=== PATIENT | female | born 1985 | race Caucasian/White ===

== ENCOUNTER 2023-09-10 18:19 | Outpatient (CLI) | payer MEDICAID, SELFPAY | END 2023-09-10 18:20 | disposition home or self-care (01) | PROVIDERS: Visit Provider Physician Assistant | DX: Z34.91 Encounter for supervision of normal pregnancy, unspecified, first trimester (principal); O02.1 Missed abortion; Z3A.01 Less than 8 weeks gestation of pregnancy | CPT/HCPCS: 76817; 86850; 86900; 86901 ==

== ENCOUNTER 2023-09-12 07:30 | Day surgery (SDC) | payer MEDICAID, SELFPAY ==
--- OUTSIDE RECORDS SUMMARY | 2023-09-12 07:33 | XMS_ITS | Referral Summary ---
Author Name Unknown Organization [facility] Address [address] [place] [address]. [place] [address] Care Team Providers Care Service Establishment Attendant Name Role Phone DennisDebbie suh Lupe Primary Care Provider [phone] Allergies Active Allergy Reactions Criticality Noted Date Comments Amoxicillin Rash Low 05/14/2021 Finished 3 days prior to onset of rash... Possibly allergic. Rash c/w drug rash. Medications Medication Sig Dispensed Refills Start Date End Date Status sertraline (ZOLOFT) 25 MG tablet Take 25 mg by mouth daily 0 08/30/2021 Active Active Problems Problem Noted Date Diagnosed Date Indication for care in labor or delivery 022 Abdominal pain 06/07/2011 Generalized anxiety disorder 06/07/2011 Overview: Diagnosis updated by automated process. Provider to review and confirm. Social History Tobacco Use Types Packs/Day Years Used Date Smoking Tobacco: Former Cigarettes 1 7 Smokeless Tobacco: Never Comments:almost a ppd Alcohol Use Standard Drinks/Week Comments Yes 0.8 (1 standard drink = 0.6 oz p ure alcohol) Kinder Depression Scale Answer Date Recorded Kinder Depression Score 6 09/29/2021 Last EPDS Self Harm Result Not on file 09/29 Adolescent Education Answer Date Record ed Getting School Help Needed Not on file 05/19 Sex and Gender Information Value Date Recorded Sex Assigned at Not on file Gender Identity Not on file Sexual Orientation Not on file Last Filed Vital Signs Vital Sign Reading Time Taken Comments Blood Pressure 127/74 09/29/2021 9:13 AM INVENTORY ASSISTANT Pulse 72 09/29/2021 9:13 AM INVENTORY ASSISTANT Temperature 36.8 ??C (98.3 ??F) 09/29/2021 9:13 AM CS T Respiratory Rate 14 09/29/2021 9:13 AM INVENTORY ASSISTANT Oxygen Saturation 100% 09/27/2021 10:00 AM INVENTORY ASSISTANT Inhaled Oxygen Concentration - - Weight 81.6 kg (180 lb) 05/14/2021 3:55 PM CDT Height 173.7 cm (5' 8.4) 10/01/2011 6:14 AM INVENTORY ASSISTANT Body Mass Index 27.05 10/01/2011 6:14 AM INVENTORY ASSISTANT Plan of Treatment Not on file Advance Directives For more information, please contact: [phone] Documents on File Type Date Recorded Patient Test Department Helper Expl anation Advance Directives and Living Will 10/06/2021 Health Care Directiv e 09/16/2021 Latest Code Status on File Code Status Date Activated Date Inactivated Comments Full Code 09/26/2021 5:45 PM 09/29/2021 4:27 PM All bas ic and advanced life-sustaining interventions are performed as appropriate Question Answer Comments Code status determined by: Discussion with patient/ legal decision maker Code Status History Code Status Date Activated Date Inactivated Comments Full Code 10/02/2011 9:01 AM 09/26/2021 10:43 AM Full Code 06/10/2011 3:44 PM 10/02/2011 9:01 AM Full Code 06/07/2011 11:56 AM 06/10/2011 3:44 PM Healthcare Agents on File Name Relationship Healthcare Agent [facility] Communication Corbin Beatty Significant other Health Care Agent Amy Low Mother First Alternate Health Care Agent Care Teams Service Establishment Attendant Relationship Specialty Start Date End Date Debbie March [address] [facility] [address] PCP - General Family Medicine 09/01/21
--- OUTSIDE RECORDS SUMMARY | 2023-09-12 07:33 | XMS_ITS | Clinical Summary ---
Author Name Unknown Organization [facility] Address [address] [place] [address]. [place] [address] Care Team Providers Care Anthropometrist Name Role Phone DennisDebbie suh Lupe Primary Care Provider Allergies Active Allergy Reactions Criticality Noted Date [...] drink = 0.6 oz p ure alcohol) [place] Depression Scale Answer Date Recorded [place] Depression Score 6 09/29/2021 Last EPDS Self [...] Comments Blood Pressure 127/74 09/29/2021 9:13 AM WOODWORKING MACHINE OFFBEARER Pulse 72 09/29/2021 9:13 AM WOODWORKING MACHINE OFFBEARER Temperature 36.8 ??C (98.3 ??F) 09/29/2021 9:13 AM CS T Respiratory Rate 14 09/29/2021 9:13 AM WOODWORKING MACHINE OFFBEARER Oxygen Saturation 100% 09/27/2021 10:00 AM WOODWORKING MACHINE OFFBEARER Inhaled Oxygen Concentration - - Weight 81.6 kg (180 lb) 05/14/2021 3:55 PM CDT Height 173.7 cm (5' 8.4) 10/01/2011 6:14 AM WOODWORKING MACHINE OFFBEARER Body Mass Index 27.05 10/01/2011 6:14 AM WOODWORKING MACHINE OFFBEARER Plan of Treatment Health Maintenance Due Date Last Done Comments ANNUAL REVIEW OF HM ORDERS 1984 HEPATITIS B IMMUNIZATION (1 of 3 - 3-dose series) 1984 HEPATITIS C SCREENING 2002 PAP 2005 DTAP/TDAP/TD IMMUNIZATION (7 - Td or Tdap) 06/06/2019 06/06/2009, 03/20/1990, 04/11/1988, Additional history exists YEARLY PREVENTIVE VISIT 02/12/2020 02/12/20 19, 01/01/2017, 03/06/2011, Additional history exists COVID-19 Vaccine ( season) 2023 08/01/2021, 01/27/2021, 12/27/2020 INFLUENZA VACCINE (#1) 2023 9, 07/21/2017, 07/13/2016, Additional history exists PHQ-2 (once per calendar year) 2023 ADVANCE CARE PLANNING 10/06/2026 10/06/2021 HPV IMMUNIZATION Completed 06/04/2012, 07/2011, 05/31/2010 HIV SCREENING Completed 03/27/2021 IPV IMMUNIZATION Aged Out No longer e ligible based on patient's age to complete this topic MENINGITIS IMMUNIZATION Aged Out No l onger eligible based on patient's age to complete this topic Pneumococcal Vaccine: Pediatrics (0 to 5 Years) and At-Risk Patients (6 to 64 Years) Aged Out No longer eligible based on patient's age to complete this topic RSV MONOCLONAL ANTIBODY Aged Out No l onger eligible based on patient's age to complete this topic Advance Directives For more information, please contact: [phone] Documents on File Type Date Recorded Patient Breakfast Attendant Expl anation Advance Directives and Living Will [...] Agents on File Name Relationship Healthcare Agent [facility] p Communication Corbin Beatty Significant other Health Care Agent Amy Low Mother First Alternate Health Care Agent Care Teams Anthropometrist Relationship Specialty Start Date End Date Debbie March [address] [place] [address] PCP - General Family Medicine 09/01/21
--- OUTSIDE RECORDS SUMMARY | 2023-09-12 07:34 | XMS_ITS | Encounter Summary ---
Author Name Unknown Organization [facility] Address [address], [place] [address] Care Team Providers Care Youth Career Specialist Name Role Phone Debbie March DO Primary Care Provider [phone] Reason for Visit * Reason Comments Medication Questions Alternate to Hernesto diego Encounter Details Date Type Department Care Team Description 09/09/2023 2:35 PM THERAPEUTIC RECREATION LEADER E-Visit Mara [address] [address] Debbie March DO [address] [place] [id number] Chief Comp: Medication Questions Social History Tobacco Use Types Packs/Day Years Used Date Smoking Tobacco: Former Cigarettes 0.8 8 0 08/26/2000 - 08/09/2008 Smokeless Tobacco: Never Alcohol Use Standard Drinks/Week Comments Yes 1.7 (1 standard drink = 0.6 oz p ure alcohol) 2 times a week PHQ-2 Answer Date Recorded PHQ-2 Score 0 01/09/2022 Depression Answer Date Recor ded Last EPDS Total Score 5 04/11/2022 Last EPDS Self Harm Result 1-->hardly ever 04/11 Comments Yes Sex and Gender Information Value Date Recorded Sex Assigned at Not on file Gender Identity Not on file Sexual Orientation Not on file documented as of this encounter Nursing Notes * Mara Robison RN - 09/10/2023 1:10 PM CST Clinician: Review and advise Patient/life care planner request: New Order: Medication Specific Request: See [employer] message for medication recommendation. Last visit 10/2022. APEUTIC RECREATION LEADER documented in this encounter Plan of Treatment Not on file documented as of this encounter Visit Diagnoses Not on filedocumented in this encounter Care Teams Youth Career Specialist Relationship Specialty Start Date End Date Debbie March DO [address] [place] [address] PCP - General 04/26/16 documented as of this encounter
--- OUTSIDE RECORDS SUMMARY | 2023-09-12 07:34 | XMS_ITS | Encounter Summary ---
Author Name Unknown Organization [facility] Address [address] [address] Care Team Providers Care Binding Cutter Name Role Phone Debbie March DO Primary Care Provider [phone] Reason for Visit * Reason Comments STREP, THROAT Encounter Details Date Type Department Care Team Description 09/18/2022 Telephone [facility] [address] [place] [address] Debbie March DO [address] [facility] [place] [address] STREP, THROAT Social History Tobacco Use Types Packs/Day Years [...] as of this encounter Nursing Notes * Krystal Rodriguez RN - 09/18/2022 6:47 PM CST Subjective: Molly Low is a 37 y.o., female positive for strep, per PCR test. Objective: Was this positive strep test obtained when patient was assessed via a clinician office visit, clinician e-visit, clinician phone visit or clinician video visit? No. Patient did not have a clinician assessment via a clinician office visit, e- visit, phone visit, or video visit prior to strep test being obtained and further manager cardiac of serious or complicating symptoms and history is needed. Patient has the following serious or complicating symptoms or history: None. Patient has NO serious or complicating symptoms or history. RN to continue with standing order. Weight: 160 lbs Current Prescriptions Current Outpatient Medications Medication Sig Dispense Refill [id number] MG CAPS TAKE 1 TAB BY MOUTH EVERY 6 HOURS NEEDED FOR HEADACHE sertraline (ZOLOFT) 25 MG tablet Take 25 mg by mouth. No current facility-administered medications for this visit. Allergies as of 09/18/2022 - Reviewed 01/09/2022 Allergen Reaction Noted Amoxicillin Rash 05/14/2021 Patient Active Problem List Diagnosis Papanicolaou smear of cervix with atypical squamous cells of undetermined significance (ASC-US) FHx: migraine headaches Anxiety (HRC) Headache, migraine Plan: Patient notified of results. Advised to notify clinic if no improvement after 48 hours. Advised is contagious until first 24 hours of antibiotics completed. Patient is 2 years and older - Antibiotic prescribed per standing orders, instructed to finish entire course. Problem list reviewed as related to this call. MACEUTICAL SALES REPRESENTATIVE * Venessa Heath RN - 09/18/2022 6:24 PM CST Results for orders placed or performed in visit on 09/18/22 Strep Test by PCR Result Value Ref Range Group A Strep Detected (A) Not Detected MACEUTICAL SALES REPRESENTATIVE documented in this encounter Plan of Treatment Not on file documented as of this encounter Visit Diagnoses Diagnosis Streptococcal pharyngitis- Primary Streptococcal sore throat documented in this encounter Additional Health Concerns Infection Onset Date Last Indicated Resolved Time R/O COVID19 09/18/2022 09/18/2022 09/19/2022 3:36 AM PHARMACEUTICAL SALES REPRESENTATIVE documented as of this encounter Care Teams Binding Cutter Relationship Specialty Start Date End Date Debbie March DO [address] [place] [address] PCP - General 04/26/16 documented as of this encounter
--- OUTSIDE RECORDS SUMMARY | 2023-09-12 07:34 | XMS_ITS | Encounter Summary ---
Author Name Unknown Organization [facility] Address [address], [place] [address] Care Team Providers Care Mental Measurements Teacher Name Role Phone Debbie March DO Primary Care Provider [phone] Reason for Visit * Reason Comments MEDICATION CHECK Encounter Details Date Type Department Care Team Description 10/23/[address] [address] [place] [address] [place] [id number] MEDICATION CHECK Social History Tobacco Use Types Packs/Day Years [...] as of this encounter Nursing Notes * Ivy Bailey RN - 10/23/2022 2:10 PM CST Patient calling, would like to increase her dose of sertraline, had stopped it for awhile. No thoughts of self harm. Patient will submit an Evisit. KILN TENDER * Briana Hall - 10/23/2022 1:42 PM CST Symptoms Describe your symptoms (if pain, include location): Pt would like to increase dosage on medication Sertraline. Currently 25mgs. Pt would like come in and be seen for medication review, APWI as soon as possible. When did they start? On going Additional comments (related to the above concern): APWI as soon as possible, medication review. If a prescription is needed, patient would like it filled at the pharmacy listed in Medication Management. Is it okay to leave a detailed message on your voicemail? Yes KILN TENDER documented in this encounter Plan of Treatment Not on file documented as of this encounter Visit Diagnoses Not on filedocumented in this encounter Care Teams Mental Measurements Teacher Relationship Specialty Start Date End Date Debbie March DO [address] [facility] [place] [address] PCP - General 04/26/16 documented as of this encounter
--- OUTSIDE RECORDS SUMMARY | 2023-09-12 07:34 | XMS_ITS | Encounter Summary ---
Author Name Unknown Organization [facility] Address [facility] [place] [address] Care Team Providers Care Rotary Operator Name Role Phone Fady Harmon MD Unavailable [phone] Debbie March Primary Care Provider [phone] Encounter Details Date Type Department Care Team (Late st Contact Info) Description 09/25/2021 Orders Only [facility] Services - Surgical Specialties Service Line [facility] [place] [address] Sandra Nance MD [address] [id number] Indication for care in labor or delivery (Primary Dx) Social History Tobacco Use Types Packs/Day Years Used Date Smoking Tobacco: Former Cigarettes 1 7 Comments:almost a ppd Alcohol Use Standard Drinks/Week Comments Yes 0.8 (1 standard drink = 0.6 oz p ure alcohol) [place] Depression Scale Answer Date Recorded [place] Depression Score 6 09/29/2021 Last EPDS Self Harm Result Not on file 09/29 Comments Yes Sex and Gender Information Value Date Recorded Sex Assigned at Not on file Gender Identity Not on file Sexual Orientation Not on file documented as of this encounter Plan of Treatment Not on file documented as of this encounter Visit Diagnoses Diagnosis Indication for care in labor or delivery- Primary Unspecified indication for care or intervention related to labor and delivery, unspecified as to episode of care documented in this encounter Care Teams Rotary Operator Relationship Specialty Start Date End Date Debbie March [address] [place] [address] PCP - General Family Medicine 09/01/21 Fady Harmon MD [address] [address] Assigned OBGYN Provider 07/16/21 documented as of this encounter
--- OUTSIDE RECORDS SUMMARY | 2023-09-12 07:34 | XMS_ITS | Encounter Summary ---
Author Name Unknown Organization [facility] Address [address], [place] [address] Care Team Providers Care Nursing Unit Coordinator Name Role Phone Debbie March DO Primary Care Provider [phone] Reason for Visit * Reason Comments Labs Needed Encounter Details Date Type Department Care Team Description 09/18/2022 Nurse Triage [address] [address] Debbie March DO [address] [place] [address] Labs Needed Social History Tobacco Use Types Packs/Day Years [...] Nursing Notes * Ivy Bailey RN - 09/18/2022 2:21 PM CST Patient calling, had onset of sore throat on 09/14-, no fever, is able to swallow, no white patches in throat. Glands do feel tender to touch. Leaving for vacation on 09/21/22. Advised covid testing with strep testing prior to travel. Problem list reviewed as related to this call. Future Appointments Date Time Provider Department Center 09/18/2022 5:00 PM LAB, [facility] Reason for Disposition Sore throat is main symptom and persists > 48 hours Protocols used: Sore [id number] EXAMINER * Debbie March DO - 09/18/2022 2:02 PM CST Will route to Triage to evaluate and determine if treatment possible with smart set/more info. Would not just order lab. If pt does not fall into the ordering/treating criteria would recommend a visit-- virtual, evisit or in person. Please advise. Thank you. Debbie March DO EXAMINER * Deepa Vázquez - 09/18/2022 9:38 AM CST Orders - Lab What order is being requested? Strep test Why is this order being requested? Pt has a sore throat When were you seen last for this concern? By whom? N/A Additional comments (related to the above concern): Is it okay to leave a detailed message on your voicemail? Yes Is there anything else I can help you with today? EXAMINER documented in this encounter Plan of Treatment Not on file documented as of this encounter Visit Diagnoses Not on filedocumented in this encounter Care Teams Nursing Unit Coordinator Relationship Specialty Start Date End Date Debbie March DO [address], [place] [address] PCP - General 04/26/16 documented as of this encounter
--- OUTSIDE RECORDS SUMMARY | 2023-09-12 07:34 | XMS_ITS | Clinical Summary ---
Author Name Unknown Organization [facility]ly [facility] Address [address], [place] [address] Care Team Providers Care Associate Professor Of Library Science Name Role Phone Dennisvikash Debbie L DO Primary Care Provider +1- [phone] Source Comments You are receiving this document as you are listed as the primary care provider,follow-up provider, or the patient has been referred to you for consultation.This is in compliance with the Medicare and[facility] Cent[facility]aid EHR Incentive Program,which states Providers who transition their patient to another setting of careor provider of care or refers their patient to another provider of care shouldprovide summary care record for each transition of care or referral. [place] Allergies Active Allergy Reactions Criticality Noted Date Comments Amoxicillin Rash Low 05/14/2021 Finished 3 days prior to onset of rash... Possibly allergic. Rash c/w drug rash. Sumatriptan Other, see comments 11/14/2022 Feels groggy, cannot function Medications Medication Sig Dispensed Refills Start Date End Date Status Ojwucvvhjq-BOFE-Otxma ine 50-300-40 MG CAPS TAKE 1 TAB BY MOUTH EVERY 6 HOURS NEEDED FOR HEADACHE 0 04/24/2021 Active rizatriptan (MAXALT-HAND BOOKED FOLDER AND STITCHER) 10 MG disintegrating tablet Take by mouth. 0 08/29/2022 Active sertraline (ZOLOFT) 100 MG tablet Take 1 Tablet (100 mg) by mouth daily. 90 Tablet 3 11/14/2022 11/14/2023 Active LORazepam (ATIVAN) 0.5 MG tabletIndications:Anx iety (HRC) Take 1 Tablet (0.5 mg) by mouth every 8 hours as needed. for anxiety 30 Tablet 0 06/16/2023 Active Active Problems Problem Noted Date Diagnosed Date Headache, migraine 04/13/2012 Anxiety 06/27/2011 FHx: migraine headaches 03/06/2011 Overview: No aura symptoms. Papanicolaou smear of cervix with atypical squamous cells of undetermined significance (ASC-US) 03/06/2010 Overview: 2008 - HPV high risk neg ; ASCUS on Pap smear Comments Yes Resolved Problems Problem Noted Date Diagnosed Date Resolved Date Panic attacks 04/20/2020 01/09/2022 Carpal tunnel syndrome 05/31/200903/06 Overview: : Given wrist splints - advised Vit B6 50mg/d Supervision of normal first 11/09/2008 03/06/2010 Overview: Primp US at 11 weeks EDC 10 16/05 /Del [facility]WH/ CNM. 1-abnormal pap ASCUS HPv high risk Neg. 2- smoker Quite. 3- HX of Migrain SIMMONS. 4- HX of depression no med used. 5- family hx of Hypertension. AP: Declined flu shot 05/04 IP: Plans epidural for pain relief; plans nursing; HP for pediatrics; having a girl; GBS neg PP: Candidate for Tdap Hyperhidrosis 10/29/2006 04/20/2020 Personal history of tobacco use, presenting hazards to health 03/19/2006 11/10/2008 General counseling for presc ription of oral contraceptives 03/19/2006 11/09/2008 Overview: On Sheeba Encounters Date Type Department Care Team Description 09/09/2023 2:35 PM LEVEL VIAL SEALER E-Visit [facility] [address] [address] Debbie March DO Chief Comp: Medication Questions 06/26/2023 4:50 PM CDT Lab Visit [facility] [address] [place] [address] Encounter for screening for other viral diseases (Primary Dx) 06/15[facility] [address] [place] [address] Debbie March DO Refill (LORazepam (ATIVAN) 0.5 MG tablet [Pharmacy Med Name: LORazepam Oral Tablet 0.5 MG]) from Last 3 Months Immunizations Name Administration Dates Next Due 4vHPV (Gardasil) 06/04/2012, 1,03/06/2011,05/31,05/31/2010 06/06/2011 DTP 03/20/1990, 8,01/19/1986,05/19,1984 DTaP 03/20/1990, 8,01/19/1986,05/19,1984 Flu Vac (3+ yrs) 05/31/2010,06/06/2009 Flu Vac Preserv Free (3+yrs) 06/04/2012,05/31/20 10,06/06/2009 H1n1 Miv Novartis 4+ Yr (Injected) 08/04/2009 H1n1 Miv Sanofi 3+ Yr (Injected) 08/04/2009 HepB Ped/Adol (0-18 yrs) 12/24/1996,08/1996,07/30/1996,07/30,06/25/1996,06/25/1996 Influenza IIV4 (Quadrivalent ) 0.5mL (94627) 04/29/2019,07/13/2016,06/04/2015 Influenza, Unspecified Formulation 07/21/2017 MMR 03/20/1990, 0,01/19/1986,01/19 Moderna Monovalent 12+ 08/01/2021,01/27/2021,11/2020 OPV, Trivalent (Orimune or tOPV) 990,03/20/1990,04/11/1988,04/11,05/19/1985,05/19/1985,1984 ,1984 TDAP (ADACEL) 06/06/2009 Td 04/12/1999,04/12/1999 Tdap 06/06/2009 Family History Medical History Relation Name Comments Hypertension Father Thyroid Disorder Mother Diabetes Maternal Grandmother High Cholesterol Maternal Grandmother Thyroid Disorder Maternal Grandmother Cancer, Other Paternal Grandfather lung Cancer Paternal Grandmother lung Cancer, Other Paternal Grandmother lung Cataract Negative Family History Glaucoma Negative Family History Macular Degeneration Negative Family History Retinal Detachment Negative Family History Stroke Negative Family History Relation Name Status Comments Father Alive Mother Alive Maternal Grandfather Alive Maternal Grandmother Alive Paternal Grandfather Paternal Grandmother Sister 1 Alive Sister 2 Alive Social History Tobacco Use Types Packs/Day Years [...] Sign Reading Time Taken Comments Blood Pressure 132/73 07/15/2019 9:56 AM LEVEL VIAL SEALER Pulse 82 07/15/2019 9:56 AM LEVEL VIAL SEALER Temperature 37.2 ??C (99 ??F) 10/22/2017 1:56 PM LEVEL VIAL SEALER Respiratory Rate 16 05/31/2010 3:09 PM CDT Oxygen Saturation - - Inhaled Oxygen Concentration - - Weight 72.6 kg (160 lb) 01/09/2022 5:02 PM CDT p t reported Height 170.2 cm (5' 7) 01/09/2022 5:02 PM CDT p t reported Body Mass Index 25.06 01/09/2022 5:02 PM CDT Plan of Treatment Health Maintenance Due Date Last Done Comments Hep C Screening (Preventive Services) 1984 DTaP/Tdap/Td (8 - Tdap) 06/06/2019 06/06/20 09, 06/06/2009, 06/06/2009 (Completed), Additional history exists COVID-19 Vaccine ( season) 2023 08/01/2021, 01/27/2021, 12/27/2020 Influenza (#1) 2023 04/29/2019, 06/27, 07/13/2016, Additional history exists Adult Preventive Visit 01/10/2024 , 02/11/2019, 01/01/2017, Additional history exists Cervical Cancer Screening 11/13/20272022, 02/11/2019, 01/31/2015, Additional history exists Zoster/Shingles (1 of 2) 2034 IPV (Polio) Completed 03/20/1990, 02/24, 04/11/1988, Additional history exists HepB Completed 12/24/1996, 08/1996, 07/30/1996, Additional history exists HIV Screening (Preventive Services) Completed 11/03/2008, 03/19/2006 HPV Vaccine Completed 06/04/2012, 02/23, 03/06/2011, Additional history exists HepA Aged Out No longer eligi ble based on patient's age to complete this topic Hib Aged Out No longer eligi ble based on patient's age to complete this topic MCV4 Aged Out No longer eligi ble based on patient's age to complete this topic Pneumococcal Aged Out No longer eligi ble based on patient's age to complete this topic Procedures Procedure Name Priority Date/Time Associated Diagnosis Comments 2019 NOVEL CORONAVIRUS Routine 06/26/2023 4:51 PM CDT Encounter for screening for other viral diseases STREP GROUP A, MOLECULAR DETECTION Waiting 06/26/2023 4:51 PM CDT Encounter for screening for other viral diseases from Last 3 Months Results * Strep Test by PCR (06/26/2023 4:51 PM CDT) Group A Strep Not Detected Not Detected 023 5:35 PM CDT [facility] Comment:Methodology: Qualita tive real-time PCR assay Swab (Source Required) THROAT SWAB / Unknown Non-blood Collection / Unknown 06/26/2023 4:51 PM CDT 06/26/2023 4:51 PM CDT Debbie March DO LAB_1 Performing Organization Address City/[facility]/ZIP Co de Phone Number [facility] [address] [facility] [place] [address] [phone] * Asymptomatic - 2019 Novel Coronavirus (COVID-19) (06/26/2023 4:51 PM CDT) COVID-19 Interpretation Not Detected Not Detected 06/27/2023 3:05 AM CDT [facility] Source Nares, left and right 06/27/2023 3:05 AM CDT [facility] Swab (Source Required) Non-blood Collection / Unknown 06/26/2023 4:51 PM CDT 06/26/2023 4:51 PM CDT Narrative [facility] - 06/27/2023 3:05 AM CDT Test performed by Demand Planning Manager Mediated Amplification. TMA has been shown to be equivalent to commercial real-time PCR tests. This test has been authorized by the FDA under Emergency Use Authorization (EUA) for use by authorized laboratories. Debbie March DO LAB_1 Performing Organization Address [facility] de Phone Number [facility] [address] [address], [facility] [phone] from Last 3 Months Advance Directives Latest Code Status on File Code Status Date Activated Date Inactivated Comments Full Code 02/01/2017 11:57 AM 02/01/2017 2:41 PM Care Teams Associate Professor Of Library Science Relationship Specialty Start Date End Date Debbie March DO [address] [place] [address] PCP - General 04/26/16
--- OUTSIDE RECORDS SUMMARY | 2023-09-12 07:34 | XMS_ITS | Encounter Summary ---
Author Name Unknown Organization [facility] Address [address], [place] [address] Care Team Providers Care Presser Cotton Ginning Name Role Phone Debbie March DO Primary Care Provider +1- [phone] Reason for Visit * Reason Comments Refill LORazepam (ATIVAN) 0 .5 MG tablet [Pharmacy Med Name: LORazepam Oral Tablet 0.5 MG] Encounter Details Date Type Department Care Team Description 11/28/[address] [address] Debbie March DO [address] [place] [address] Refill (LORazepam (ATIVAN) 0.5 MG tablet [Pharmacy Med Name: LORazepam Oral Tablet 0.5 MG]) Social History Tobacco Use Types Packs/Day Years [...] as of this encounter Nursing Notes * Interface, Out Qualgenix Prov Query - 11/28/2022 10:32 AM CDT LORazepam (ATIVAN) 0.5 MG tablet [Pharmacy Med Name: LORazepam Oral Tablet 0.5 MG] Medication started: 12/26/2016 Last ordered by DEBBIE MARCH: 10/28/2022 (31 days ago) QTY: 30, Refills: 0, Sig: take 1 tablet (0.5 mg) by mouth every 8 hours as needed. for anxiety (unchanged) -> Medication cannot be delegated. Last qualifying visit: 11/14/2022 (with DEBBIE MARCH) Next scheduled visit: None WinAd Embedded Refills, Reference: [id number], 11/28/2022 10:32:40 AM CDT, Pool: EMI FP REFILL ([id number]) * Interface, Out Relux Query - 11/28/2022 10:32 AM CDT No Careplan note found by LeadiD. documented in this encounter Plan of Treatment Not on file documented as of this encounter Visit Diagnoses Diagnosis Anxiety Anxiety state, unspecified documented in this encounter Care Teams Presser Cotton Ginning Relationship Specialty Start Date End Date Debbie March DO [address] [place] [address] PCP - General 04/26/16 documented as of this encounter
--- OUTSIDE RECORDS SUMMARY | 2023-09-12 07:34 | XMS_ITS | Encounter Summary ---
Author Name Unknown Organization [facility] Address [address] [place] [address] Care Team Providers Care Batch Attendant Name Role Phone Debbie March DO Primary Care Provider +1- [phone] Reason for Visit * Reason Onset Date Comments COVID Questions 09/18/2022 Encounter Details Date Type Department Care Team Description 09/18/2022 5:00 PM JOINT RUNNER Lab Visit [facility] [address] [place] [address] Sore throat (Primary Dx) Social History Tobacco Use Types [...] on file documented as of this encounter Procedures Procedure Name Priority Date/Time Associated Diagnosis Comments STREP GROUP A, MOLECULAR DETECTION Waiting 09/18/2022 5:16 PM JOINT RUNNER Sore throat 2019 NOVEL CORONAVIRUS Routine 09/18/2022 5:16 PM JOINT RUNNER Sore throat documented in this encounter Results * (ABNORMAL) Strep Test by PCR (09/18/2022 5:16 PM JOINT RUNNER) Pathologist [facility] Group A Strep Detected( A) Not Detected 09/18/2022 5:58 PM JOINT RUNNER [facility] Comment:Methodology: Qualita tive real-time PCR assay Swab (Source Required) THROAT SWAB / Unknown Non-blood Collection / Unknown 09/18/2022 5:16 PM JOINT RUNNER 09/18/2022 5:16 PM JOINT RUNNER Debbie March DO LAB_1 [facility] [address] [place] [address], [facility] [phone] * Symptomatic - 2019 Novel Coronavirus (COVID-19) (09/18/2022 5:16 PM JOINT RUNNER) [facility] COVID-19 Interpretation Not Detected Not Detected 09/19/2022 3:36 AM JOINT RUNNER [facility] Source Nares, left and right 09/19/2022 3:36 AM JOINT RUNNER [facility] Swab (Source Required) Non-blood Collection / Unknown 09/18/2022 5:16 PM JOINT RUNNER 09/18/2022 5:16 PM JOINT RUNNER Narrative [facility] - 09/19/2022 3:36 AM JOINT RUNNER Test performed by Route Rider Supervisor Mediated Amplification. TMA has been shown to be equivalent to commercial real-time PCR tests. This test has been authorized by the FDA under Emergency Use Authorization (EUA) for use by authorized laboratories. Debbie March DO LAB_1 [facility] [address] [address], [facility] [phone] documented in this encounter Visit Diagnoses Diagnosis Sore throat- Primary Acute pharyngitis documented in this encounter Care Teams Batch Attendant Relationship Specialty Start Date End Date Debbie March DO [address] [place] [address] PCP - General 04/26/16 documented as of this encounter
--- OUTSIDE RECORDS SUMMARY | 2023-09-12 07:34 | XMS_ITS | Encounter Summary ---
Author Name Unknown Organization [facility] Address [address] [place] [address] Care Team Providers Care Wheel Tuner Name Role Phone Debbie March DO Primary Care Provider +1- [phone] Reason for Visit * Reason Comments Refill LORazepam (ATIVAN) 0 .5 MG tablet [Pharmacy Med Name: LORazepam Oral Tablet 0.5 MG] Encounter Details Date Type Department Care Team Description 03/04/[address] [address] Debbie March DO [address] [place] [address] Refill (LORazepam (ATIVAN) 0.5 MG tablet [...] this encounter Nursing Notes * Interface, Out nuevoStage Prov Query - 03/04/2023 1:53 PM CDT LORazepam (ATIVAN) 0.5 MG tablet [Pharmacy Med Name: LORazepam Oral Tablet 0.5 MG] Medication started: 03/19/2017 Last ordered by DEBBIE MARCH: 11/28/2022 (96 days ago) QTY: 30, Refills: 0, Sig: take 1 tablet (0.5 mg) by mouth every 8 hours as needed. for anxiety (unchanged) -> Medication cannot be delegated. Last qualifying visit: 11/14/2022 (with DEBBIE MARCH) Next scheduled visit: None Poly Adaptive Embedded Refills, Reference: [id number], 03/04/2023 1:53:39 PM CDT, Pool: EMI FP REFILL ([id number]) * Interface, Out nuevoStage Prov Query - 03/04/2023 1:53 PM CDT No Careplan note found by Anafocus. documented in this encounter Plan of Treatment Not on file documented as of this encounter Visit Diagnoses Diagnosis Anxiety Anxiety state, unspecified documented in this encounter Care Teams Wheel Tuner Relationship Specialty Start Date End Date Dbebie March DO [address] [facility] [place] [address] PCP - General 04/26/16 documented as of this encounter
--- OUTSIDE RECORDS SUMMARY | 2023-09-12 07:34 | XMS_ITS | Encounter Summary ---
Author Name Unknown Organization [facility] Address [address] [address] Care Team Providers Care Dispatcher Tugboat Name Role Phone Debbie March DO Primary Care Provider +1- [phone] Reason for Visit * Reason Comments Refill LORazepam (ATIVAN) 0 .5 MG tablet [Pharmacy Med Name: LORazepam Oral Tablet 0.5 MG] Encounter Details Date Type Department Care Team Description 06/15/[address] [address] Debbie March DO [address] [place] [address] Refill (LORazepam (ATIVAN) 0.5 MG tablet [...] this encounter Nursing Notes * Interface, Out Secure[employer] Systems Prov Query - 06/15/2023 9:09 AM CDT LORazepam (ATIVAN) 0.5 MG tablet [Pharmacy Med Name: LORazepam Oral Tablet 0.5 MG] Medication started: 07/17/2017 Last ordered by DEBBIE MARCH: 03/04/2023 (103 days ago) QTY: 30, Refills: 0, Sig: take 1 tablet (0.5 mg) by mouth every 8 hours as needed. for anxiety (unchanged) -> Medication cannot be delegated. Last qualifying visit: 11/14/2022 (with DEBBIE MARCH) Next scheduled visit: None Akoha Embedded Refills, Reference: [id number], 06/15/2023 9:09:14 AM CDT, Pool: EMI FP REFILL ([id number]) * Interface, Out [employer] Payment Systems Prov Query - 06/15/2023 9:09 AM CDT No Careplan note found by Starmount. documented in this encounter Plan of Treatment Not on file documented as of this encounter Visit Diagnoses Diagnosis Anxiety Anxiety state, unspecified documented in this encounter Care Teams Dispatcher Tugboat Relationship Specialty Start Date End Date Debbie March DO [address] [place] [address] PCP - General 04/26/16 documented as of this encounter
--- OUTSIDE RECORDS SUMMARY | 2023-09-12 07:34 | XMS_ITS | Encounter Summary ---
Author Name Unknown Organization [facility] Address [address] [place] [address] Care Team Providers Care Information Manager Name Role Phone Debbie March DO Primary Care Provider +1- [phone] Reason for Visit * Reason Comments Video Visit MEDICATION CHECK Encounter Details Date Type Department Care Team Description 11/14/2022 1:30 PM CDT Telemedicine [address] [address] [place] [address] [place] [id number] Anxiety (Primary Dx); Need for hepatitis C screening test; Other migraine without status migrainosus, not intractable Social History Tobacco Use Types Packs/Day Years [...] on file documented as of this encounter Progress Notes * Debbie March DO - 11/14/2022 1:30 PM CDT Today's visit with Molly Low was conducted as a scheduled video visit. S: Molly is here today for follow up on her sertraline. 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 Found that she needs this. On 50 mg now. No longer having the constantsadness, lack of motivation. Has a supportive partner. Adjusted her daily routine, which has helped. Started trying out gyms to see what might work. Overall feeling 80% better. Wonders however about increasing this? Has been needing to take her lorazepam, 1-2 tabs. Nighttime THC drinks and this helps to calm her down. Last filled 30 tabs lorazepam on 10/29/22. 30 tabs lasts her 2 months. She is not needing a refill at this time. O: There were no vitals taken for this visit. GEN: WNWH, NAD, Pleasant RESP: no distress, speaking in full sentences PSYCH: mood and affect appropriate and congruent A/P 1. Anxiety (HRC) 2. Need for hepatitis C screening test 3. Other migraine without status migrainosus, not intractable Increase zoloft to 100 mg. Recommend starting D3 supplement 2000 units, with food daily. Also discussed monitoring her response to the increased zoloft, in terms of her need for ativan. Will contact us for refill when needed. The patient agrees to this plan. documented in this encounter Plan of Treatment Not on file documented as of this encounter Visit Diagnoses Diagnosis Anxiety (HRC)- Primary Anxiety state, unspecified Need for hepatitis C screening test Special screening examination for other specified viral diseases Other migraine without status migrainosus, not intractable documented in this encounter Care Teams Information Manager Relationship Specialty Start Date End Date Debbie March DO [address] [place] [address] PCP - General 04/26/16 documented as of this encounter
--- OUTSIDE RECORDS SUMMARY | 2023-09-12 07:34 | XMS_ITS | Encounter Summary ---
Author Name Unknown Organization [facility] Address [address] [place] [address] Care Team Providers Care Power Tool Repairer Name Role Phone Debbie March DO Primary Care Provider +1- [phone] Reason for Visit * Reason Onset Date Comments COVID Questions 06/26/2023 Encounter Details Date Type Department Care Team Description 06/26/2023 4:50 PM CDT Lab Visit [facility] [address] [place] [address] Encounter for screening for other viral diseases (Primary Dx) Social History Tobacco Use Types [...] Comments STREP GROUP A, MOLECULAR DETECTION Waiting 06/26/2023 4:51 PM CDT Encounter for screening for other viral diseases 2019 NOVEL CORONAVIRUS Routine 06/26/2023 4:51 PM CDT Encounter for screening for other viral diseases documented in this encounter Results * Strep Test by PCR (06/26/2023 4:51 PM CDT) [facility] Group A Strep Not Detected Not Detected 023 5:35 PM CDT [facility] Comment:Methodology: Qualita tive real-time PCR assay Swab (Source Required) THROAT SWAB / Unknown Non-blood Collection / Unknown 06/26/2023 4:51 PM CDT 06/26/2023 4:51 PM CDT Debbie March DO LAB_1 Performing Organization Address [facility] Co de Phone Number [facility] [address] [place] [address], [place] [phone] * Asymptomatic - 2019 Novel Coronavirus (COVID-19) (06/26/2023 4:51 PM CDT) [facility] COVID-19 Interpretation Not Detected Not Detected 06/27/2023 3:05 AM CDT [facility] Source Nares, left and right 06/27/2023 3:05 AM CDT [facility] Swab (Source Required) Non-blood Collection / Unknown 06/26/2023 4:51 PM CDT 06/26/2023 4:51 PM CDT Narrative [facility] - 06/27/2023 3:05 AM CDT Test performed by Peoplesoft Administrator Mediated Amplification. TMA has been shown to be equivalent to commercial real-time PCR tests. This test has been authorized by the FDA under Emergency Use Authorization (EUA) for use by authorized laboratories. Debbie March DO LAB_1 Performing Organization Address [facility] Co de Phone Number [facility] [address] [address], [facility] [phone] documented in this encounter Visit Diagnoses Diagnosis Encounter for screening for other viral diseases- Primary documented in this encounter Care Teams Power Tool Repairer Relationship Specialty Start Date End Date Debbie March DO [address] [place] [address] PCP - General 04/26/16 documented as of this encounter
--- OUTSIDE RECORDS SUMMARY | 2023-09-12 07:34 | XMS_ITS | Encounter Summary ---
Author Name Unknown Organization [facility] Address [address], [place] [address] Care Team Providers Care Career Services Representative Name Role Phone Debbie March DO Primary Care Provider +1- [phone] Reason for Visit * Reason Comments Medication Questions Entered automatical ly based on patient selection in PowerDsine. Encounter Details Date Type Department Care Team Description 10/24/2022 E-Visit Mara [address] [id number] Debbie Macrh DO [address] [place] [phone] Dx: Anxiety (Primary Dx) Social History Tobacco Use Types [...] Progress Notes * Debbie March DO - 10/28/2022 7:02 PM CSTAddended by: DEBBIE MARCH on: 10/28/2022 07:02 PM Modules accepted: Orders TWISTER documented in this encounter Nursing Notes * Ivy Bailey, RN - 10/24/2022 11:10 AM CST Clinician Action: E-Visit for Medication question or change Clinician Next Step: Reply in MyChart Specific Request(s): 1. See Evisit request. TWISTER documented in this encounter Plan of Treatment Not on file documented as of this encounter Visit Diagnoses Diagnosis Anxiety- Primary Anxiety state, unspecified documented in this encounter Care Teams Career Services Representative Relationship Specialty Start Date End Date Debbie March DO [address] [facility] [address] PCP - General 04/26/16 documented as of this encounter
[2023-09-12 07:59] VITALS: BMI 27.8
[2023-09-12 08:02] VITALS: BP 115/71; PULSE 69; RESP 16; TEMP 36.7; O2SAT 100
[2023-09-12] MEDS: SODIUM CHLORIDE 0.9 % (FLUSH) 10 ML SYRINGE IVF (08:19)
[2023-09-12] MEDS: LACTATED RINGERS 1000 ML 1,000 ML 100 ML IV (08:19)
--- NOTE | 2023-09-12 08:36 | W.PM.H&PU ---
History & Physical Update History & Physical Update H&P Reviewed and patient assessed: No changes noted
[2023-09-12] MEDS: DOXYCYCLINE HYCLATE 200 MG in 0.9 % SODIUM CHLORIDE 250 ml 250 ML 250 MG IVPB (09:04)
[2023-09-12] MEDS: LIDOCAINE 1 % PF 30 ML INJECTION (09:05)
[2023-09-12] MEDS: SILVER NITRATE APPLICATOR 1 EACH STICK..EA. TOPICAL (09:15)
[2023-09-12 09:25] VITALS: BP 124/72; PULSE 74; RESP 16; TEMP 36.1; O2SAT 97
--- NOTE | 2023-09-12 09:30 | W.ANESCHARGE ---
Anesthesia Charges Start Date/Time Anesthesia Start Date: 09/12/23 Anesthesia Start Time: 08:43 Stop Date/Time Anesthesia Stop Date: 09/12/23 Anesthesia Stop Time: 09:27
[2023-09-12 09:40] VITALS: BP 119/70; PULSE 66; RESP 16; O2SAT 99
--- NOTE | 2023-09-12 09:48 | W.ANESCHARGE ---
Anesthesia Charges Start Date/Time Anesthesia Start Date: 09/12/23 Anesthesia Start Time: 08:43 Stop Date/Time Anesthesia Stop Date: 09/12/23 Anesthesia Stop Time: 09:27
[2023-09-12 10:01] VITALS: BP 126/72; PULSE 67; RESP 16; O2SAT 100
[2023-09-12 10:16] VITALS: BP 132/64; PULSE 79; RESP 16; TEMP 36.8; O2SAT 98
--- NOTE | 2023-09-12 10:48 | W.PM.GYNPROC ---
Procedure Note Date of procedure: 09/12/23 Procedure: Preoperative diagnosis: Missed at 7 2/7 weeks by CRL Postoperative diagnosis: Same Procedure: Suction uterine curettage Surgeon: Jo Ann Bella MD Anesthesia: Monitored anesthesia care, paracervical block IV fluids: 600 mL crystalloid EBL: 10 mL Urine output: 15 mL Findings: 1. Exam under anesthesia revealed a mobile, anteverted uterus that was consistent in size with 8 weeks' gestation. There are no palpable adnexal masses. 2. Moderate amount of products of conception returned with suction curettage. Complications: None Procedure in detail: Patient was taken to the operating with IV running. She had received 200 mg IV doxycycline in preoperative prophylaxis. She was placed in dorsal lithotomy position. Monitored anesthesia care was administered. She was prepped and draped in the usual sterile fashion. Her bladder was straight catheterized. Exam under anesthesia was performed for the above-noted findings. Speculum was inserted. Cervix was grasped along its anterior lip with a tenaculum. Paracervical block was performed with a total of 10 mL of 1% lidocaine. The cervix was serially dilated to 8 Slovenian. A size 7 rigid suction cannula was then passed through the cervix to the uterine fundus. Suction was applied, and the suction cannula was withdrawn along the path of insertion. This was repeated several more times, with obvious return of products of conception. A gritty texture was noted throughout. Procedure was deemed complete. The tenaculum was removed from the anterior lip the cervix, and hemostasis was achieved with silver nitrate. The speculum was then removed from the vagina. Patient tolerated procedure well and was taken recovery area in stable condition.
== END 2023-09-12 10:35 | disposition home or self-care (01) ==
PROVIDERS: Visit Provider Obstetrics & Gynecology
PROC: (CPT 59820; principal; 2023-09-12 08:45)
DX: O02.1 Missed abortion (principal)
CPT/HCPCS: 59820; 00940; 01965; 86850; 86900; 86901; 88305; A9270; J1100; J1885; J2001; J2250; J2405; J2704; J3010; J7050; J7120

== ENCOUNTER 2025-04-08 23:09 | Emergency (ER) | payer MEDICAID, SELFPAY ==
--- OUTSIDE RECORDS SUMMARY | 2025-03-05 10:30 | XMS_ITS | Encounter Summary ---
Author Organization [employer] Address [address], [place] [address] Care Team Providers Care Remelt Sugar Boiler Name Role Phone DennisvikashDebbie DO Primary Care Provider +1- [phone] Encounter Details Date Type Department Care Team (Late st Contact Info) Description 03/05/2025 10:30 AM CDT Telemedicine [facility] [place] [address] [place] [address] Tala Gutierrez, LAND AGENT, RIM FIRE CHARGER OPERATOR [address] [place] [address] Vaginal burning (Primary Dx); Vaginal discharge Social History Tobacco Use Types Packs/Day Years Used Date Smoking Tobacco: Former Cigarettes 0.8 8 0 08/26/2000 - 08/09/2008 Smokeless Tobacco: Never Alcohol Use Standard Drinks/Week Comments Yes 1.7 (1 standard drink = 0.6 oz p ure alcohol) 2 times a week PHQ-2 Answer Date Recorded PHQ-2 Score 1 12/31/2023 Depression Answer Date Recor ded Last EPDS Total Score 5 10/03/2024 Last EPDS Self Harm Result Not on file 10/03 Comments No Sex and Gender Information Value Date Recorded Sex Assigned at Not on file Legal Sex Female 5:58 AM CDT Gender Identity Not on file Sexual Orientation Not on file 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 Subjective Molly presents regarding vaginal burning with intercourse. Lila states she noticed last night during intercourse, she had some burning. She denies any pain, states it was only burning in nature. She denies any vaginal burning other than when she had intercourse. She is in a monogamous relationship, states it is a new relationship. Recently started the NuvaRing, and saw OBGYN on 02/25 and had a pelvic exam at that time. She has noticed a little bit of vaginal discharge that is white in nature.She denies any pain when urinating, denies any vaginal odor, denies any blood in her urine. Objective Vitals: There were no vitals taken for this visit. General Appearance: alert, well appearing, and in no apparent distress HEENT: symmetric facies Respiratory: no cough, no increase in work of breathing, and speaking in full sentences Cardiovascular: appears well perfused Neurologic: normal speech, no facial droop, and alert and oriented x 3 Psychiatric: affect/mood normal and normal judgement/insight Assessment/Plan Vaginal burning - Urinalysis Routine, Micro/Culture if Pos: Clean Catch; Future - Vaginitis Panel; Future - Chlamydia & GC (14 Years and Older): Vagina; Future Vaginal discharge - Urinalysis Routine, Micro/Culture if Pos: Clean Catch; Future - Vaginitis Panel; Future - Chlamydia & GC (14 Years and Older): Vagina; Future Other orders - etonogestrel-ethinyl estradiol (NUVARING) 0.12-0.015 MG/24HR vaginal ring; Insert 1 Each vaginally every 4 weeks. Orders as above for vaginal burning and vaginal discharge. Will await results and treat accordingly. Encouraged patient to increase water intake and monitor symptoms. Discussed new or worsening symptoms and went to be re-evaluated. Tala Gutierrez APRN, CNP documented in this encounter Plan of Treatment Not on file documented as of this encounter Results * (ABNORMAL) Urinalysis Routine, Micro/Culture if Pos: Clean Catch (03/05/2025 6:11 PM CDT) Urine Microscopic Evaluation Reflex Order Comment Urinalysis results do not meet criteria for urine microscopic evaluation reflex. 03/05/2025 6:35 PM CDT [facility] Color Yellow 03/05/2025 6:35 PM CDT [facility] Clarity Clear Clear 03/05/2025 6:35 PM CDT [facility] Specific [place] >=1.030(A) 1.005 - 1.030 03/05/2025 6:35 PM CDT [facility] pH 6.0 5.0 - 8.0 03/05/2025 6:35 PM CDT [facility] Protein Negative Neg/Trace mg/dL 03/05/2025 6:35 PM CDT [facility] Glucose Negative Negative mg/dL 03/05/2025 6:35 PM CDT [facility] Ketones Negative Negative mg/dL 03/05/2025 6:35 PM CDT [facility] Urobilinogen 0.2 <2.0 EU/dL 03/05/2025 6:35 PM CDT [facility] Bilirubin Negative Negative 03/05/2025 6:35 PM CDT [facility] Blood Trace Neg/Trace 03/05/2025 6:35 PM CDT [facility] Nitrite Negative Negative 03/05/2025 6:35 PM CDT [facility] Leukocyte Esterase Negative Negative 03/05/2025 6:35 PM CDT [facility] Source Clean Catch 03/05/2025 6:35 PM CDT [facility] Urine URINE SPECIMEN COLLECTION, CLEAN CATCH / Unknown Non-blood Collection / Unknown 03/05/2025 6:11 PM CDT 03/05/2025 6:11 PM CDT us Tala Gutierrez APRN, CNP LAB_1 Final Result [facility] [address] [place] [address] * Chlamydia & GC (14 Years and Older): Vagina (03/05/2025 6:10 PM CDT) Chlamydia Trachomatis STD Not Detected Not Detected 03/06/2025 1:05 PM CDT [facility] N. gonorrhoeae STD Not Detected Not Detected 03/06/2025 1:05 PM CDT [facility] Swab STD SPECIMEN FROM VAGINA / Unknown Non-blood Collection / Unknown 03/05/2025 6:10 PM CDT 03/05/2025 6:10 PM CDT [facility] - 03/06/2025 1:05 PM CDT Test performed by Junior Recruiter Mediated Amplification (TMA). Tala Gutierrez APRN, RIM FIRE CHARGER OPERATOR LAB_1 Final Result Performing Organization Address [facility] Phone Number [facility] [address] * (ABNORMAL) Vaginitis Panel (03/05/2025 6:10 PM CDT) Pathologist [facility] Bacterial Vaginosis Negative Negative 03/06/2025 12:04 PM CDT [facility] Mirella species Positive(A) Negative 03/06/2025 12:04 PM CDT [facility] Mirella glabrata Negative Negative 03/06/2025 12:04 PM CDT [facility] Trichomonas vaginalis Negative Negative 03/06/2025 12:04 PM CDT [facility] Swab STD SPECIMEN FROM VAGINA / Unknown Non-blood Collection / Unknown 03/05/2025 6:10 PM CDT 03/05/2025 6:10 PM CDT [facility] - 03/06/2025 12:04 PM CDT Test performed by Junior Recruiter Mediated Amplification (TMA). Tala Gutierrez APRN, RIM FIRE CHARGER OPERATOR LAB_1 Final Result Performing Organization Address [facility] de Phone Number [facility] [address] documented in this encounter Visit Diagnoses Diagnosis Vaginal burning- Primary Other specified symptom associated with female genital organs Vaginal discharge Leukorrhea, not specified as infective documented in this encounter Care Teams Remelt Sugar Boiler Relationship Specialty Start Date End Date Debbie March DO [address] [place] [address] PCP - General 04/26/16 documented as of this encounter
--- OUTSIDE RECORDS SUMMARY | 2025-03-05 18:00 | XMS_ITS | Encounter Summary ---
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 Not on file Not on tico e documented as of this encounter Plan of Treatment Not on file documented as of this encounter Procedures Procedure Name Priority Date/Time Associated Diagnosis Comments URINALYSIS ROUTINE, MICRO/CULTURE IF POS Routine 03/05/2025 6:11 PM CDT Vaginal burning Vaginal discharge VAGINITIS PANEL Routine 03/05/2025 6:10 PM CDT Vaginal burning Vaginal discharge CHLAMYDIA & GC (14 YEARS & OLDER) Routine 03/05/2025 6:10 PM CDT Vaginal burning Vaginal discharge documented in this encounter Results * (ABNORMAL) Urinalysis Routine, Micro/Culture if Pos: Clean Catch (03/05/2025 6:11 PM CDT) Urine Microscopic Evaluation Reflex Order Comment Urinalysis results do not meet criteria for urine microscopic evaluation reflex. 03/05/2025 6:35 PM CDT [facility] Color Yellow 03/05/2025 6:35 PM T [facility] Clarity Clear Clear 03/05/2025 6:35 PM T [facility] Specific [place] >=1.030(A) 1.005 - 1.030 03/05/2025 6:35 PM T [facility] pH 6.0 5.0 - 8.0 03/05/2025 6:35 PM T [facility] Protein Negative Neg/Trace mg/dL 03/05/2025 6:35 PM T [facility] Glucose Negative Negative mg/dL 03/05/2025 6:35 PM T [facility] Ketones Negative Negative mg/dL 03/05/2025 6:35 PM T [facility] Urobilinogen 0.2 <2.0 EU/dL 03/05/2025 6:35 PM [facility] Bilirubin Negative Negative 03/05/2025 6:35 PM [facility] Blood Trace Neg/Trace 03/05/2025 6:35 PM T [facility] Nitrite Negative Negative 03/05/2025 6:35 PM T [facility] Leukocyte Esterase Negative Negative 03/05/2025 6:35 PM [facility] Source Clean Catch 03/05/2025 6:35 PM [facility] Urine URINE SPECIMEN COLLECTION, CLEAN CATCH / Unknown Non-blood Collection / Unknown 03/05/2025 6:11 PM CDT 03/05/2025 6:11 PM CDT Tala Gutierrez FELLER HAND, HYDROELECTRIC MECHANIC LAB_1 Final Result [facility] [address] [place] [address] * Chlamydia & GC (14 Years and Older): Vagina (03/05/2025 6:10 PM CDT) Chlamydia Trachomatis STD Not Detected Not Detected 03/06/2025 1:05 PM CDT [facility] N. gonorrhoeae STD Not Detected Not Detected 03/06/2025 1:05 PM CDT [facility] Swab STD SPECIMEN FROM VAGINA / Unknown Non-blood Collection / Unknown 03/05/2025 6:10 PM CDT 03/05/2025 6:10 PM CDT Narrative [facility] - 03/06/2025 1:05 PM CDT Test performed by Pharmacy Benefit Manager Mediated Amplification (TMA). Tala Gutierrez APRN, HYDROELECTRIC MECHANIC LAB_1 Final Result Performing Organization Address [facility] Co de Phone Number [facility] [id number] [place] [address] * (ABNORMAL) Vaginitis Panel (03/05/2025 6:10 PM CDT) Bacterial Vaginosis Negative Negative 03/06/2025 12:04 PM CDT [facility] Mirella species Positive(A) Negative 03/06/2025 12:04 PM CDT [facility] Mirella glabrata Negative Negative 03/06/2025 12:04 PM CDT [facility] Trichomonas vaginalis Negative Negative 03/06/2025 12:04 PM CDT [facility] Swab STD SPECIMEN FROM VAGINA / Unknown Non-blood Collection / Unknown 03/05/2025 6:10 PM CDT 03/05/2025 6:10 PM CDT Narrative [facility] - 03/06/2025 12:04 PM CDT Test performed by Pharmacy Benefit Manager Mediated Amplification (TMA). us Tala Gutierrez APRN, NURYS LAB_1 Final Result [employer] [facility] [address] [address] documented in this encounter Visit Diagnoses Diagnosis Vaginal burning Other specified symptom associated with female genital organs Vaginal discharge Leukorrhea, not specified as infective documented in this encounter Care Teams Claim Representative Relationship Specialty Start Date End Date Debbie March DO [address] [place] [address] PCP - General 04/26/16 documented as of this encounter
--- OUTSIDE RECORDS SUMMARY | 2025-03-06 13:20 | XMS_ITS | Encounter Summary ---
Author Organization [employer] Address [address] [place] [address] Care Team Providers Care Agricultural Appraiser Name Role Phone Debbie March DO Primary Care Provider +1- [phone] Reason for Visit * Reason Comments QUESTIONS, GENERAL Entered automaticall y based on patient selection in [email or web address] 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
[2025-04-08 23:23] VITALS: BP 132/88; PULSE 64; RESP 18; TEMP 36.4; O2SAT 100; BMI 23.5
--- OUTSIDE RECORDS SUMMARY | 2025-04-08 23:42 | XMS_ITS | Clinical Summary ---
Author Organization [employer] Address [address] [place] [address]. [place] [address] Care Team Providers Care Motorcycle Subassembler Name Role Phone Debbie March MD Primary Care Provider +1- [phone] Allergies Active Allergy Reactions Criticality Noted Date Comments Amoxicillin Rash Low 05/14/2021 Finished 3 days prior to onset of rash... Possibly allergic. Rash c/w drug rash. Medications sertraline (ZOLOFT) 25 MG tablet Take 25 mg by mouth daily 08/30/2021 Active Active Problems Problem Noted Date Diagnosed Date Indication for care in labor or delivery 022 Abdominal pain 06/07/2011 Generalized anxiety disorder 06/07/2011 Overview (06/27/2015): Diagnosis updated by automated process. Provider to review and confirm. Social History Tobacco Use Types Packs/Day Years Used Date Smoking Tobacco: Former Cigarettes 1 7 Smokeless Tobacco: Never Comments:almost a ppd Alcohol Use Standard Drinks/Week Comments Yes 0.8 (1 standard drink = 0.6 oz p ure alcohol) Cascade Depression Scale Answer Date Recorded Cascade Depression Score 6 09/29/2021 Last EPDS Self Harm Result Not on file 09/29 Adolescent Education Answer Date Record ed Getting School Help Needed Not on file 05/19 Comments No Sex and Gender Information Value Date Recorded Sex Assigned at Not on file Legal Sex Female 4:53 AM MANAGER MARKET DEVELOPMENT Gender Identity Not on file Sexual Orientation Not on file Last Filed Vital Signs Vital Sign Reading Time Taken Comments Blood Pressure 127/74 09/29/2021 9:13 AM MANAGER MARKET DEVELOPMENT Pulse 72 09/29/2021 9:13 AM MANAGER MARKET DEVELOPMENT Temperature 36.8 C (98.3 F) 09/29/2021 9:13 AM MANAGER MARKET DEVELOPMENT Respiratory Rate 14 09/29/2021 9:13 AM MANAGER MARKET DEVELOPMENT Oxygen Saturation 100% 09/27/2021 10:00 AM MANAGER MARKET DEVELOPMENT Inhaled Oxygen Concentration - - Weight 81.6 kg (180 lb) 05/14/2021 3:55 PM CDT Height 173.7 cm (5' 8.4) 10/01/2011 6:14 AM MANAGER MARKET DEVELOPMENT Body Mass Index 27.05 10/01/2011 6:14 AM MANAGER MARKET DEVELOPMENT Plan of Treatment Not on file [facility] For more information, please contact: [phone] Documents on File Type Date Recorded Patient Wardsperson Expl anation Advance Directives and Living Will 10/06/2021 Health Care Directiv e 09/16/2021 * Full Code (Latest Code Status on File) Date Activated Date Inactivated Comments 09/26/2021 5:45 PM 09/29/2021 4:27 PM All basic and advanced life-sustaining interventions are performed as appropriate Question Answer Comments Code status determined by: Discussion with patie nt/ legal decision maker * Full Code Date Activated Date Inactivated Comments 10/02/2011 9:01 AM 09/26/2021 10:43 AM * Full Code Date Activated Date Inactivated Comments 06/10/2011 3:44 PM 10/02/2011 9:01 AM * Full Code Date Activated Date Inactivated Comments 06/07/2011 11:56 AM 06/10/2011 3:44 PM Healthcare Agents on File Name Relationship Healthcare Agent [facility] Communication Corbin Beatty Significant other Health Care Agent Amy Low Mother First Alternate Health Care Agent Care Teams Motorcycle Subassembler Relationship Specialty Start Date End Date Debbie March MD [address] [place] [address] PCP - General Family Medicine 09/01/21
--- OUTSIDE RECORDS SUMMARY | 2025-04-08 23:42 | XMS_ITS | Encounter Summary ---
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 I sent a prescription for an oral anti-fungal pill to your pharmacy. Your prescription will contain two tablets. Take one tablet today. One pill clears up aninfection for most women. If you still have symptoms 72 hours after taking the first pill, take thesecond pill at that time. Please review the treatment plan for additional care instructions and tips. If you have questions or concerns, select Help from your treatment plan and submit a Follow Up Request Be well! LUCY Nova Treatment Plan I sent a prescription for an oral antifungal medication to [facility]. Often, symptoms improve withone dose of this medication. If your symptoms don?? improve within 3 days, take the second dose. If you havequestions, selectHelptoRequest a follow-up,andwe??l discuss next steps. Order(s) fluconazole 150 mg tablet Take 1 tablet by mouth single dose as directed Note: Repeat in 3 days if symptoms persist Refills: None Sent To: [facility] [address] [place], [place] [id number] Treatment Plan Self Care Tip Topics Common Risk Factors for Yeast Infections What to Expect With the recommendations in this treatment plan, your symptoms should start to improve over the next 3days but may take up to a week to fully resolve. If your symptoms worsen or don?? improve in thistimeframe,I recommend you be seen in person so a clinician can consider testing and determine next steps. What to Watch Out For Visit a clinic or urgent care if you experience: ??? A fever higher than 103.0 F ??? Strong vaginal odor with discharge ??? Frequent, painful urination ??? Blood in urine ??? Severe back, abdominal or pelvic pain My Conditions, Orders, Allergies as of March 25, 2025 Standard condition list Migraine Headaches Anxiety Depression Current orders fluconazole (fluconazole) rizatriptan (rizatriptan) lorazepam (lorazepam) sertraline (sertraline) Allergies amoxicillin (amoxicillin), oral [place] [facility] [place] [facility] [employer] We are an online clinic open 18/03. If you have any questions or comments about this visit, please call or email [email or web address] documented in this encounter Plan of Treatment Not on file documented as of this encounter Visit Diagnoses Not on filedocumented in this encounter Care Teams Assistant Plant Control Operator Relationship Specialty Start Date End Date Debbie March DO [address] [place] [address] PCP - General 04/26/16 documented as of this encounter
--- OUTSIDE RECORDS SUMMARY | 2025-04-08 23:42 | XMS_ITS | Encounter Summary ---
Author Organization [employer] Address [address], [place] [address] Care Team Providers Care Letter Sorting Machine Operator Name Role Phone EfrenyawDebbie DO Primary Care Provider +1- [phone] Encounter Details Date Type Department Care Team (Late st Contact Info) Description 03/07/2025 Results Follow-Up [facility] [place] [address] 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
--- OUTSIDE RECORDS SUMMARY | 2025-04-08 23:42 | XMS_ITS | Clinical Summary ---
Author Organization [facility] Address [address] [address] Care Team Providers Care Loom Fixer Helper Name Role Phone Dennisvikash Debbie L DO Primary Care Provider [phone]- [phone] Source Comments You are receiving this document as you are listed as the primary care provider,follow-up provider, or the patient has been referred to you for consultation.This is in compliance with the Medicare and[facility] EHR Incentive Program,which states Providers who transition their patient to another setting of careor provider of care or refers their patient to another provider of care shouldprovide summary care record for each transition of care or referral. [facility] Allergies Active Allergy Reactions Criticality Noted Date Comments Amoxicillin Rash Low 05/14/2021 Finished 3 days prior to onset of rash... Possibly allergic. Rash c/w drug rash. Sumatriptan Other, see comments 11/14/2022 Feels groggy, cannot function Medications * This document contains information received from the source organization and may not represent a complete record from that organization. sertraline (ZOLOFT) 100 MG tabletIndications: Anxiety (HRC) Take 1.5 Tablets (150 mg) by mouth daily. 135 Tablet 3 5 Active etonogestrel-ethin yl estradiol (NUVARING) 0.12-0.015 MG/24HR vaginal ring Insert 1 Each vaginally every 4 weeks. 5 Active rizatriptan (MAXALT-BEAUTY CULTURIST APPRENTICE) 10 MG disintegrating tablet Take 1 Tablet (10 mg) by mouth as needed for Headache. 27 Tablet 2 5 Active Active Problems Problem Noted Date Diagnosed Date Headache, migraine 04/13/2012 Anxiety 06/27/2011 Papanicolaou smear of cervix with atypical squamous cells of undetermined significance (ASC-US) 03/06/2010 Overview (04/17/2017): 2008 - HPV high risk neg ; ASCUS on Pap smear Resolved Problems Problem Noted Date Diagnosed Date Resolved Date Panic attacks 04/20/2020 01/09/2022 FHx: migraine headaches 03/06/2011 05/0 01/2024 Overview (03/06/2011): No aura symptoms. Carpal tunnel syndrome 05/31/200903/06 Overview (05/31/2009): : Given wrist splints - advised Vit B6 50mg/d Supervision of normal first 11/09/2008 03/06/2010 Overview (05/31/2009): Primp US at 11 weeks EDC 10 [...] presc ription of oral contraceptives 03/19/2006 11/09/2008 Overview (03/19/2006): On Sheeba Encounters Date Type Department Care Team Description 04/08/2025 noam Singh [address] [place] [address] 03/25/2025 noam Singh [address] [place] [address] 03/25/2025 Elan [address] [place] [address] 03/09/2025 Refill [facility] [address] [place] [address] Debbie March DO Refill (rizatriptan (MAXALT-BEAUTY CULTURIST APPRENTICE) 10 MG disintegrating tablet) 03/07/2025 Results Follow-Up [facility] [address] [place] [address] Tala Gutierrez APRN, NURYS 03/06/2025 1:20 PM CDT E-Visit [facility] [address] [place] [address] Debbie March DO Chief Comp: QUESTIONS, GENERAL 03/05/2025 6:00 PM CDT Lab Visit [facility] [address] [place] [address] Vaginal burning; Vaginal discharge 03/05/2025 10:30 AM CDT Telemedicine [facility] [address] [place] [address] Tala Gutierrez APRN, SENIOR DESIGN ENGINEERING SPECIALIST Vaginal burning (Primary Dx); Vaginal discharge 03/05/2025 E-Visit [facility] [address] [place] [address] Tala Gutierrez, GISEL, SENIOR DESIGN ENGINEERING SPECIALIST from Last 3 Months Immunizations Immunization Administration Dates Next Due 4vHPV (Gardasil) 06/04/2012, 1,03/06/2011,05/31,05/31/2010 06/06/2011 DTP 03/20/1990, 8,01/19/1986,05/19,1984 DTaP 03/20/1990, 8,01/19/1986,05/19,1984 Flu Vac (3+ yrs) 05/31/2010,06/06/2009 Flu Vac Preserv Free (3+yrs) 06/04/2012,05/31/20 10,06/06/2009 H1n1 Miv Novartis 4+ Yr (Injected) 08/04/2009 H1n1 Miv Sanofi 3+ Yr (Injected) 08/04/2009 HepB Ped/Adol (0-18 yrs) 12/24/1996,08/1996,07/30/1996,07/30,06/25/1996,06/25/1996 Influenza IIV4 (Quadrivalent ) 0.5mL (81832) 04/29/2019,07/13/2016,06/04/2015 Influenza, Unspecified Formulation 07/21/2017 MMR 03/20/1990, 0,01/19/1986,01/19 Moderna Monovalent 12+ 08/01/2021,01/27/2021,11/2020 OPV, Trivalent (Orimune or tOPV) 990,03/20/1990,04/11/1988,04/11,05/19/1985,05/19/1985,1984 ,1984 TDAP (ADACEL) 06/06/2009 Td 04/12/1999,04/12/1999 Tdap 06/06/2009,05/07/2009 Family History Medical History Relation Name Comments [...] 0 08/26/2000 - 08/09/2008 Smokeless Tobacco: Never Tobacco Cessation:Counseling Given: Not Answered Alcohol Use Standard Drinks/Week Comments Yes 1.7 [...] 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 on file Not on tico e Last Filed Vital Signs Vital Sign Reading Time Taken Comments Blood Pressure 132/73 07/15/2019 9:56 AM DIRECTOR OF VITAL STATISTICS Pulse 82 07/15/2019 9:56 AM DIRECTOR OF VITAL STATISTICS Temperature 37.2 C (99 F) 10/22/2017 1:56 PM DIRECTOR OF VITAL STATISTICS Respiratory Rate 16 05/31/2010 3:09 PM CDT [...] Comments Hep C Screening (Preventive Services) 1984 Mammogram 1984 DTaP/Tdap/Td Vaccine (9 - Tdap) 06/06/2019 06/06/2009, 06/06/2009, 06/06/2009 (Completed), Additional history exists COVID-19 Vaccine ( season) 2024 08/01/2021, 01/27/2021, 12/27/2020 Influenza Vaccine (#1) 2025 9, 07/21/2017, 07/13/2016, Additional history exists Adult Preventive Visit 12/30/2025 4, 01/09/2022, 02/11/2019, Additional history exists Cervical Cancer Screening 11/13/20272022, 02/11/2019, 02/11/2019, Additional history exists Zoster/Shingles Vaccine (1 of 2) 2034 IPV (Polio) Vaccine Completed 03/20/1990, 03/20/1990, 04/11/1988, Additional history exists HepB Vaccine Completed 12/24/1996, 08/1996, 07/30/1996, Additional history exists HIV Screening (Preventive Services) Completed 11/03/2008, 03/19/2006 Tuberculosis Screening Completed 03/06/2010 HPV Vaccine Completed 06/04/2012, 02/23, 03/06/2011, Additional history exists HepA Vaccine Aged Out No longer eligi ble based on patient's age to complete this topic Hib Vaccine Aged Out No longer eligi ble based on patient's age to complete this topic MCV4 Vaccine Aged Out No longer eligi ble based on patient's age to complete this topic Meningococcal B Vaccine Aged Out No l onger eligible based on patient's age to complete this topic Pneumococcal Vaccine Aged Out No long er eligible based on patient's age to complete this topic Procedures Procedure Name Priority Date/Time Associated Diagnosis Comments URINALYSIS ROUTINE, MICRO/CULTURE IF POS Routine 03/05/2025 6:11 PM CDT Vaginal burning Vaginal discharge CHLAMYDIA & GC (14 YEARS & OLDER) Routine 03/05/2025 6:10 PM CDT Vaginal burning Vaginal discharge VAGINITIS PANEL Routine 03/05/2025 6:10 PM CDT Vaginal burning Vaginal discharge CYTOLOGY (PAP) Routine 02/11/2019 2:03 PM CDT Screening for malignant neoplasm of cervix TB GOLD, QUANTIFERON Routine 03/06/2010 3:24 PM CDT Routine Physical Examination HIV ANTIBODY Routine 11/03/2008 2:07 PM CDT Supervision of Normal First from Last 3 Months or Most Recently Relevant to Health Maintenance Results * (ABNORMAL) Urinalysis Routine, Micro/Culture if Pos: Clean Catch (03/05/2025 6:11 PM CDT) Urine Microscopic Evaluation Reflex Order Comment Urinalysis results do not meet criteria for urine microscopic evaluation reflex. 03/05/2025 6:35 PM CDT [facility] Color Yellow 03/05/2025 6:35 PM CDT [facility] Clarity Clear Clear 03/05/2025 6:35 PM CDT [facility] Specific [place] >=1.030(A) 1.005 - 1.030 03/05/2025 6:35 PM CDT [facility] pH 6.0 5.0 - 8.0 03/05/2025 6:35 PM CDT [facility] Protein Negative Neg/Trace mg/dL 03/05/2025 6:35 PM CDT [facility] Glucose Negative Negative mg/dL 03/05/2025 6:35 PM CDT [facility] Ketones Negative Negative mg/dL 03/05/2025 6:35 PM CDT [facility] Urobilinogen 0.2 <2.0 EU/dL 03/05/2025 6:35 PM CDT [facility] Bilirubin Negative Negative 03/05/2025 6:35 PM CDT [facility] Blood Trace Neg/Trace 03/05/2025 6:35 PM CDT [facility] Nitrite Negative Negative 03/05/2025 6:35 PM CDT [facility] Leukocyte Esterase Negative Negative 03/05/2025 6:35 PM CDT [facility] Source Clean Catch 03/05/2025 6:35 PM CDT [facility] Urine URINE SPECIMEN COLLECTION, CLEAN CATCH / Unknown Non-blood Collection / Unknown 03/05/2025 6:11 PM CDT 03/05/2025 6:11 PM CDT us Tala Gutierrez DAIRY HELPER, SENIOR DESIGN ENGINEERING SPECIALIST LAB_1 Final Result [facility] [address] [place] [address], [facility] * (ABNORMAL) Vaginitis Panel (03/05/2025 6:10 PM CDT) Bacterial Vaginosis Negative Negative 03/06/2025 12:04 PM CDT [facility] Mirella species Positive(A) Negative 03/06/2025 12:04 PM CDT [facility] Mirella glabrata Negative Negative 03/06/2025 12:04 PM CDT [facility] Trichomonas vaginalis Negative Negative 03/06/2025 12:04 PM CDT [facility] Swab STD SPECIMEN FROM VAGINA / Unknown Non-blood Collection / Unknown 03/05/2025 6:10 PM CDT 03/05/2025 6:10 PM CDT [facility] - 03/06/2025 12:04 PM CDT Test performed by Stock Raiser Mediated Amplification (TMA). Tala Gutierrez APRN, SENIOR DESIGN ENGINEERING SPECIALIST LAB_1 Final Result Performing Organization Address [facility] de Phone Number [facility] [address] * Chlamydia & GC (14 Years and Older): Vagina (03/05/2025 6:10 PM CDT) Chlamydia Trachomatis STD Not Detected Not Detected 03/06/2025 1:05 PM CDT [facility] N. gonorrhoeae STD Not Detected Not Detected 03/06/2025 1:05 PM CDT [facility] Swab STD SPECIMEN FROM VAGINA / Unknown Non-blood Collection / Unknown 03/05/2025 6:10 PM CDT 03/05/2025 6:10 PM CDT [facility] - 03/06/2025 1:05 PM CDT Test performed by Stock Raiser Mediated Amplification (TMA). Tala Gutierrez APRN, SENIOR DESIGN ENGINEERING SPECIALIST LAB_1 Final Result Performing Organization Address [facility] de Phone Number [facility] [address] * PAP Test (02/11/2019 2:03 PM CDT) Case Report Pap Case: [id number] Authorizing Provider: Vidhi Dawson APRN, TA Collected: 02/11/2019 02:03 PM Ordering Location: [place] Received: 02/11/2019 02:54 PM Obstetrics/Gynec ology First Screen: Jenifer Beckham, [place] (ASCP) Specimen: Pap Test, Routine, Cervix/Endocervix 02/17/2019 11:44 AM CDT [facility] Pap Specimen Adequacy Satisfactory for evaluation, endocervical/hanson sformation zone component absent. 02/17/2019 11:44 AM CDT [facility] Pap Interpretation Negative for intraepithelial lesion or malignancy (NILM). 02/17/2019 11:44 AM CDT [facility] at 1144 CDT Gross Description The specimen is received in SurePath fixative and properly labeled. 1 Pap-stained SurePath slide is prepared. 02/17/2019 11:44 AM CDT [facility] Pap Disclaimer The Pap test is a screening test designed to aid in the detection of cervical cancer and its precursor lesions. It is not a diagnostic procedure and should not be used as the sole means of detecting cervical cancer. Both false-positive and false-negative reports may occur. 02/17/2019 11:44 AM CDT [facility] Embedded Images 11:44 AM CDT [facility] Other Specimen Type ENTIRE ENDOCERVIX / Unknown 02/11/2019 2:03 PM CDT 02/11/2019 2:54 PM CDT Comment:LMP: No LMP recorded . Patient is not currently having periods (Reason: IUD). Vidhi Dawson APRN, CNM LAB PATHOLOGY Final Res ult Performing Organization Address City/State/[facility] Co de Phone Number [facility] [address] * TB GOLD, QUANTIFERON (03/06/2010 3:24 PM CDT) TB Gold, Quantiferon Negative [facility] TB Gold Interpreta. M. tuberculosis Infection is unlikely, but cannot be excluded, [facility] Comment: especially when illness is consistent with TB. Performed at [facility] 03/06/2010 3:24 PM CDT 03/06/2010 3:36 PM CDT Eder Caldwell APRN, CNM LAB_1 Final Result [facility] [address] [id number] * HIV ANTIBODY (11/03/2008 2:07 PM CDT) Pathologist [facility] HIV 1/2 Antibody Non-Reac tive NR [facility] Comment: This assay detects antibodies to HIV Type 1(including Group O)and HIV Type 2 by chemiluminescent immunoassay. 11/03/2008 2:07 PM CDT 11/03/2008 2:18 PM CDT us Eder Caldwell APRN, TA LAB_1 Final Result Performing Organization Address [facility] Co de Phone Number [facility] [address] [phone] from Last 3 Months or Most Recently Relevant to Health Maintenance Insurance [facility] PMAP Advance Directives * Full Code (Latest Code Status on File) Date Activated Date Inactivated Comments 02/01/2017 11:57 AM 02/01/2017 2:41 PM Care Teams Loom Fixer Helper Relationship Specialty Start Date End Date Debbie March DO [address] [place] [address] PCP - General 04/26/16
--- OUTSIDE RECORDS SUMMARY | 2025-04-08 23:42 | XMS_ITS | Encounter Summary ---
Author Organization [facility] Address [address] [place] [address]. [place] [address] Care Team Providers Care Vise Hand Name Role Phone Fady Harmon MD Unavailable [phone] Debbie March MD Primary Care Provider [phone]- [phone] Encounter Details Date Type Department Care Team (Late st Contact Info) Description 09/25/2021 Orders Only [facility] Services - Surgical Specialties Service Line [address] [place] [address] Sandra Nance MD [address] [phone] Indication for care in labor or delivery (Primary Dx) Social History Tobacco Use Types Packs/Day Years Used Date Smoking Tobacco: Former Cigarettes 1 7 Comments:almost a ppd Alcohol Use Standard Drinks/Week Comments Yes 0.8 (1 standard drink = 0.6 oz p ure alcohol) [place] Depression Scale Answer Date Recorded [place] Depression Score 6 09/29/2021 Last EPDS Self Harm Result Not on file 09/29 Comments Yes Sex and Gender Information Value Date Recorded Sex Assigned at Not on file Legal Sex Female 4:53 AM EXPLOSIVE ORDNANCE HANDLER Gender Identity Not on file Sexual Orientation Not on file documented as of this encounter Plan of Treatment Not on file documented as of this encounter Visit Diagnoses Diagnosis Indication for care in labor or delivery- Primary Unspecified indication for care or intervention related to labor and delivery, unspecified as to episode of care documented in this encounter Care Teams Vise Hand Relationship Specialty Start Date End Date Debbie March MD [address] [place] [place] [address] PCP - General Family Medicine 09/01/21 Fady Harmon MD [address] [place] [address] Assigned OBGYN Provider 07/16/21 documented as of this encounter
--- OUTSIDE RECORDS SUMMARY | 2025-04-08 23:42 | XMS_ITS | Encounter Summary ---
Author Organization [facility] Address [address] [place] [address] Care Team Providers Care Community Outreach Coordinator Name Role Phone Debbie March DO Primary Care Provider [phone]- [phone] Reason for Visit * Reason Comments Refill rizatriptan (MAXALT- BOOK REPAIRER) 10 MG disintegrating tablet Encounter Details Date Type Department Care Team (Late st Contact Info) Description 03/09/[address] [address] [place] [address] [place] [address] Refill (rizatriptan (MAXALT-BOOK REPAIRER) 10 MG disintegrating tablet) Social History Tobacco Use Types Packs/Day Years [...] 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 Signed order needed. Requested medication listed as historical Last qualifying visit: 12/02/2024 Next scheduled visit: None Review pended order for accuracy. Sign if appropriate. Document if appointment is needed for further refills. Route to care team to notify patient if needed. Requested Prescriptions Pending Prescriptions Disp Refills rizatriptan (MAXALT-BOOK REPAIRER) 10 MG disintegrating tablet 27 Tablet 2 Sig: Take 1 Tablet (10 mg) by mouth as needed for Headache. * Mitzi Scott [facility] - 03/09/2025 11:26 AM CDT rizatriptan (MAXALT-BOOK REPAIRER) 10 MG disintegrating tablet Medication started: 08/29/2022 Last ordered by UNKNOWN, PHYSICIAN: 08/29/2022 (923 days ago as Historical on 11/14/2022 by ISAAC SALDAÑA), Sig: take by mouth. (changed) -> The medication cannot be found on the patient's active medication list. -> The most recent order on 08/18/2024. -> The requested medication was previously set to Historical. -> Unable to determine if sig has changed, review required. -> A qualifying visit was not found within the last 2 years. Last qualifying visit: None (A recent visit (in Family Practice with XIOMARA HOOKS) was found) Next scheduled visit: None [facility] Embedded Refills, Reference: [id number], 03/09/2025 11:26:24 AM CDT, Dev GREGORIO [facility] - Primary Care [[id number]] ([id number]) * Mitzi Scott - 03/09/2025 11:03 AM CDT The patient chart could not be locked at 03/09/2025 11:03 AM by StatusPage in order to process thisrefill request. Please try re-routing to attempt to retry processing through StatusPage. documented in this encounter Plan of Treatment Not on file documented as of this encounter Visit Diagnoses Not on filedocumented in this encounter Care Teams Community Outreach Coordinator Relationship Specialty Start Date End Date Debbie March DO [address] [place] [address] PCP - General 04/26/16 documented as of this encounter
--- OUTSIDE RECORDS SUMMARY | 2025-04-08 23:42 | XMS_ITS | Encounter Summary ---
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 I have prescribed Prednisoe 40 mg with food, every am for 5 days. For additional care tips and instructions, please review your treatment plan. If you have questions or concerns, select Help from the plan and Follow Up Request. LUCY Fraser Treatment Plan Let?? try an oral steroid medication to help your symptoms. I sent a prescription to [facility]. Azalia listed a few of the best ways to soothe your discomfort and additional self-care tips to promotehealing. If you have questions, select Help to Request aFollow-up and we'll discuss next steps. Order(s) prednisone 20 mg tablet Take 2 tablet Oral once a day as directed for 5 days Note: $patientNotes Refills: None Sent To: [facility] [address] [place] [id number] Treatment Plan Self Care Tip Topics Wash the Area Cold Packs Topical Itch Relief What to Expect If you follow the recommendations I made on the Treatment tab, your symptoms should begin to improveover the next 5 days.Follow-up care:We offer follow-up care for 7 days, so if you have any questions during that time, selectHelp to Request a Follow-up. If your symptomsworsen or don?? get better inthe expected time frame, complete a newvisit so we can assess your current symptoms and discuss next steps. What to Watch Out For Give us a call if you experience: ??? Increasing warmth or redness around the bite or sting ??? Red, swollen or painful joints ??? Fevers ??? Abdominal pain ??? Headaches My Conditions, Orders, Allergies as of April 08, 2025 Standard condition list Migraine Headaches Anxiety Depression Current orders prednisone (prednisone) fluconazole (fluconazole) rizatriptan (rizatriptan) lorazepam (lorazepam) sertraline (sertraline) Allergies amoxicillin (amoxicillin), oral [facility] Information [facility] [employer] We are an online clinic open 18/03. If you have any questions or comments about this visit, please call or email [email or web address]. documented in this encounter Plan of Treatment Not on file documented as of this encounter Visit Diagnoses Diagnosis Insect bite (nonvenomous) of abdominal wall, initial encounter (CODE) documented in this encounter Care Teams Oral And Maxillofacial Pathologist Relationship Specialty Start Date End Date Debbie March DO [address] [place] [address] PCP - General 04/26/16 documented as of this encounter
--- OUTSIDE RECORDS SUMMARY | 2025-04-08 23:42 | XMS_ITS | Encounter Summary ---
Author Organization [facility] Address [address], [place] [address] Care Team Providers Care Junior Recruiter Name Role Phone EfrenyawDebbie DO Primary Care Provider [phone]- [phone] Encounter Details Date Type Department Care Team (Late st Contact Info) Description 03/05/2025 E-Visit [facility] [place] [address] 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
--- OUTSIDE RECORDS SUMMARY | 2025-04-08 23:42 | XMS_ITS | Encounter Summary ---
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
--- NOTE | 2025-04-08 23:44 | ED.GENADULT ---
HPI - General Adult General Date Seen: 04/08/25 Chief complaint: Insect Bite Stated complaint: rash on L arm Time Seen by Provider: 04/08/25 23:39 History of Present Illness HPI narrative: Patient is a generally healthy 39-year-old who was stung by some kind of insect yesterday on her left upper arm, she isn't sure what it was although she assumes it was some kind of beer wasp. It was painful at the time this staying and she has had a growing area of redness and itchiness since then. She had a virtual visit with someone earlier today who prescribed prednisone but she has not taken it yet because she says when she fell that the pharmacist told her to wait and take it tomorrow morning because it would make her jittery. She has had a couple of Benadryl. No respiratory complaints. She does have a history of fairly vigorous responses to bites and stings in the past but never anything quite this dramatic. Related Data Home Medications ?Medication ?Instructions ?Recorded ?Confirmed lorazepam 0.5 mg tablet 0.5 mg PO QDAY PRN 09/10/23 09/12/23 rizatriptan 10 mg tablet 10 mg PO ONCE 09/10/23 09/12/23 sertraline 100 mg tablet 100 mg PO QDAY 09/10/23 09/12/23 Allergies Allergy/AdvReac Type Severity Reaction Status Date / Time amoxicillin Allergy Intermediate Rash Verified 09/12/23 07:50 [facility] Medical History (Updated 04/08/25 @ 23:49 by Debora Taylor MD) History of gestational hypertension ?Z87.59 - Personal history of other complications of , childbirth and the puerperium (ICD-10) Surgical History (Updated 09/10/23 @ 07:40 by Shanna Shields PA-C) History of colposcopy ?Z98.890 - Other specified postprocedural states (ICD-10) History of cholecystectomy ?Z90.49 - Acquired absence of other specified parts of digestive tract (ICD-10) Family History (Updated 09/10/23 @ 07:31 by Shanna Shields PA-C) Maternal Grandfather Colon cancer Social History (Updated 09/10/23 @ 18:40 by Shanna Shields PA-C) 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 Nonsmoker, does use marijuana. Alcohol use: 1-2 per week Smoking Status: Former smoker What tobacco products do you use: cigarettes Smoking quit date/years: <= 15 years ago Do you use any of these nicotine containing products: None How often do you have a drink containing alcohol: monthly or less How many standard drinks containing alcohol do you have on a typical day: 1 or 2 How often do you have six or more drinks on one occasion: Never AUDIT-C Alcohol total score: 1 Non-prescribed substance use: denies use Caffeine: No service: No Exam Narrative: Exam Narrative: Vital signs reviewed In general, alert, well-appearing woman. Extremities: Examination of the left arm does show of staying wound and then a fairly large area of erythema which is ovoid with sharply demarcated borders, some central clearing. Const: Vital Signs, click to edit/add: Vital Signs - 24 hr 04/08/25 23:23 Temperature 97.6 F Pulse Rate [Pulse Oximeter] 64 Respiratory Rate 18 Blood Pressure [Le ft Upper Arm] 132/88 Pulse Oximetry 100 Oxygen Delivery Me thod Room Air Course Course ED Course: Overall discussed with her I think this is simply a local reaction to the sting and not cellulitis. It is not painful, of the sting was yesterday and overall I would recommend continued use of antihistamines. We talked about using a nonsedating a antihistamine such as Zyrtec or Claritin twice a day rather than Benadryl, and then I encouraged her to take the prednisone that was previously prescribed, she can certainly wait until tomorrow morning if she feels more comfortable with that. Discussed that this will probably take a few days to settle down but should do so and that time. If she feels it is getting worse, she has more pain or fevers or any other systemic complaints return to the ER. Vital Signs Vital signs: Initial Vital Signs Temperature 97.6 F 04/08/25 23:23 Temperature Source Oral 04/08/25 23:23 Pulse Rate 64 04/08/25 23:23 Pulse Rhythm Regular 04/08/25 23:23 Respiratory Rate 18 04/08/25 23:23 Blood Pressure 132/88 04/08/25 23:23 Blood Pressure Mean 102 04/08/25 23:23 Blood Pressure Position Sitting 04/08/25 23:23 Pulse Oximetry 100 04/08/25 23:23 Oxygen Delivery Method Room Air 04/08/25 23:23 Vital Signs Temperature 97.6 F 04/08/25 23:23 Pulse Rate 64 04/08/25 23:23 Respiratory Rate 18 04/08/25 23:23 Blood Pressure 132/88 04/08/25 23:23 Pulse Oximetry 100 04/08/25 23:23 Oxygen Delivery Method Room Air 04/08/25 23:23 Temperature 97.6 F 04/08/25 23:23 Pulse Rate 64 04/08/25 23:23 Respiratory Rate 18 04/08/25 23:23 Blood Pressure 132/88 04/08/25 23:23 Pulse Oximetry 100 04/08/25 23:23 Oxygen Delivery Method Room Air 04/08/25 23:23 Discharge Plan Discharge Clinical Impression: Insect sting Prescriptions: No Action sertraline 100 mg tablet 100 mg PO QDAY rizatriptan 10 mg tablet 10 mg PO ONCE Rx Instructions: as a single dose lorazepam 0.5 mg tablet 0.5 mg PO QDAY PRN Follow Up/Referrals: Provider,Not a Local [Primary Care Provider, Family Practice]
== END 2025-04-09 00:19 | disposition home or self-care (01) ==
PROVIDERS: Emergency Provider Emergency Medicine
DX: T63.461A Toxic effect of venom of wasps, accidental (unintentional), initial encounter (principal)
CPT/HCPCS: 99282; 99283